=== PATIENT | female | born 2005 | race Caucasian/White ===

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

== ENCOUNTER 2023-04-02 12:30 | Emergency (ER) | payer MEDICAID, SELFPAY ==
--- NOTE | ~2023-04-02 | XR_ITS ---
EXAMINATION: XR ANKLE, RIGHT CLINICAL INFORMATION: Pain. Trauma. COMPARISON: None available. TECHNIQUE: AP, lateral, and mortise views of the right ankle. FINDINGS: Bone alignment is normal. No fracture or dislocation. Normal ankle mortise. Lateral soft tissue swelling. XR/XR ankle RT 2V IMPRESSION: Lateral soft tissue swelling. No fracture or dislocation.
--- NOTE | 2023-04-02 12:40 | ED.LOWEXIN ---
HPI - Extremity Injury (Lower) General Chief Complaint: Extremity Problem Stated Complaint: R Ankle Injury 04/02/23 Time Seen by Provider: 04/02/23 12:51 Source: patient Mode of arrival: wheelchair Limitations: no limitations History of Present Illness HPI Narrative: Patient is a 17-year-old female presenting to the emergency department with complaint of right lateral ankle pain and swelling. States she was walking down a set of stairs to take her dog outside when she felt a popping sensation and pain. She denies any numbness or tingling to her ankle or foot. She took 400 mg ibuprofen prior to arrival. Reports that she has had fractures in the past and pain feels similar. She denies hitting her head, denies loss of consciousness, denies any other pain or injuries. MD complaint: ankle injury Onset (ago): hour(s) Injury: Right: ankle Type of Injury: unknown Place: home Severity: severe Relieving factors: nothing Exacerbating factors: weight bearing Context: walking Associated symptoms: snap/pop sensation Other symptoms: none Treatments prior to arrival: NSAIDS Related Data Previous Rx's Medication Instructions Recorded ketorolac 10 mg tablet 10 mg PO TID 5 days #15 tabs 04/12/21 methocarbamol 750 mg tablet 750 mg PO TID 3 days #9 tabs 04/12/21 acetaminophen 500 mg tablet 500 mg PO Q6H PRN fever or pain 11/29/22 (Tylenol Extra Strength) #14 tabs naproxen 500 mg tablet 500 mg PO BID PRN pain 10 days #20 11/29/22 tabs Allergies Allergy/AdvReac Type Severity Reaction Status Date / Time isotretinoin AdvReac Blister Verified 11/29/22 09:15 Review of Systems Review of Systems: As per HPI. Yes all other systems are reviewed and are negative Constitutional: Constitutional: Reports as per HPI [facility] Social History Social History Advance Directives: No Advance Directives Information Provided: No Physical Exam Vital Signs: Vital Signs: Last Vital Signs Temp 98.3 F 04/02/23 12:42 Pulse 86 04/02/23 12:42 Resp 18 04/02/23 12:42 BP 119/72 04/02/23 12:42 Pulse Ox 98 04/02/23 12:42 O2 Del Method Room Air 04/02/23 12:42 BMI result Body Mass Index 30.2 Vital signs have been reviewed and appear to be correct. Blood pressure normal. Heart rate normal. Respiratory rate normal. Temperature normal. Oxygen saturation normal. Const: General: cooperative, healthy appearing and no acute distress Orientation/consciousness: oriented to person, oriented to place, oriented to time and patient oriented x3 Limitations: no limitations HEENT: Head: Yes normocephalic and Yes atraumatic Ears: external ears normal General nose exam: Normal external nose present Face and sinus: Yes face symmetric Mouth: oropharynx normal and moist mucous membranes Throat: Yes uvula midline Eyes: Pupils: Equal, round and reactive pupils present Neck: Neck: Yes normal visual inspection and Yes supple Resp: Effort & Inspection: normal respiratory effort and able to speak in complete sentences Auscultation: clear to auscultation bilaterally Cardio: Rate: regular rate Rhythm: regular rhythm Heart sounds: S1 normal heart sound present and S2 normal heart sound present GI: Palpation (GI): Soft to palpation and nontender Auscultation: normoactive bowel sounds : General: Yes no CVA tenderness Back/Spine/Pelvis: Back: no CVA tenderness Skin: General skin exam: elasticity normal and turgor normal Neuro: General: oriented to person, oriented to place, oriented to time, patient oriented x3, moves all extremities, no focal motor deficits and CN's II-XI intact bilaterally Cranial nerves: Yes Equal, round and reactive pupils present Cognition (Neuro): normal cognition Extrem: General: Yes full ROM, Yes normal exam except as noted, Yes no pedal edema and Yes no calf tenderness Right lower extremity: ankle Details: tenderness Location: of the lateral malleolus, swelling Details: laterally and abnormal ROM Details: pain with active ROM Details: with plantar flexion, with dorsiflexion, with inversion and with eversion; no ecchymosis and no crepitus and foot Details: vascular exam Details: dorsalis pedis pulse present, posterior tibial pulse present and normal capillary refill Psych: Mental Status: mental status grossly normal Affect: normal affect Thought process: Normal thought process present Course Course Course Narrative: This is a rapid medical exam. Deferred additional HPI, ROS, PE to primary provider. 17 yo female with history of anxiety, depression, PTSD here with complaints of right ankle pain after missing a step today. Will check x-rays VSS Medical Decision Making Medical Decision Making [facility] Narrative: Patient is a 17-year-old female presenting to the emergency department with complaint of right lateral ankle pain and swelling. On exam patient is awake, A+Ox3, VS WNL, afebrile, normal neurological exam without focal deficits, tenderness and swelling to lateral malleolus of right ankle, no ecchymosis or warmth, pain with range of motion, 2+ DP and PT pulses. Given reported symptoms and physical exam findings, initial differential includes strain, sprain, fracture. X-ray notable for no acute fracture dislocation. My interpretation is in agreement with the radiologist's interpretation. X-ray results discussed with patient and all questions answered. Will place patient in air splint and provided crutches with teaching, refer to orthopedics for further management. Advised patient to keep ankle elevated while at rest, apply ice several times daily, alternate Tylenol ibuprofen as needed for discomfort. Return precautions discussed at bedside. Patient verbalized understanding of and agreement with plan. Differential Diagnosis Differential Diagnoses: The differential diagnosis associated with the presentation includes As per MDM. Independent Interpretation I performed an independent interpretation of an: Plain X-Ray Interpretation: No acute fracture dislocation Radiology Impression Discussion of test interpretation with radiology: I have reviewed the radiologist's reading. Radiologist Impression: XR/XR ankle RT 2V IMPRESSION: Lateral soft tissue swelling. No fracture or dislocation. ? External Record Review External record reviewed: Inpatient record, Office record and Outpatient record Discharge Plan Discharge Clinical Impression: Right ankle sprain Patient Disposition: Home, Self-Care Instructions: R.I.C.E. Treatment (ED), Ankle Sprain (DC), Crutch Instructions (ED) Additional Instructions: You have been evaluated in the emergency department today for ankle pain. Your x-ray did not show evidence of fracture or dislocation. We have provided crutches for you to use while your ankle heals. Please rest, ice, and elevate your ankle, and resume normal activities as tolerated. We recommend you take 600mg ibuprofen every 6 hours or 650mg Tylenol every 6 hours as needed for pain. If needed you can alternate these medications as they take 1 medication every 3 hours. For instance at noon take ibuprofen, then at 3:00 p.m. take Tylenol, then at 6:00 p.m. take ibuprofen. You are being referred to orthopedics for further management, please contact their office to schedule an appointment. Please schedule an appointment for follow-up with your primary care provider this week. Return to the emergency department if you experience worsening pain, numbness, tingling, change of color in your foot, or any other concerning symptoms. Prescriptions: No Action ketorolac 10 mg tablet 10 mg PO TID 5 Days Qty: 15 0RF methocarbamol 750 mg tablet 750 mg PO TID 3 Days Qty: 9 0RF acetaminophen [Tylenol Extra Strength] 500 mg tablet 500 mg PO Q6H PRN (Reason: fever or pain) Qty: 14 0RF naproxen 500 mg tablet 500 mg PO BID PRN (Reason: pain) 10 Days Qty: 20 0RF Referrals: [facility] [place] Group] Stand Alone Forms: Work/School Release
[2023-04-02 12:42] VITALS: BP 119/72; PULSE 86; RESP 18; TEMP 36.8; O2SAT 98; BMI 30.2
== END 2023-04-02 14:02 | disposition home or self-care (01) ==
PROVIDERS: Emergency Provider Emergency Medicine; PCP Internal Medicine
DX: S93.401A Sprain of unspecified ligament of right ankle, initial encounter (principal); X58.XXXA Exposure to other specified factors, initial encounter; Y93.9 Activity, unspecified; Y92.9 Unspecified place or not applicable; Y99.9 Unspecified external cause status; Z79.899 Other long term (current) drug therapy
CPT/HCPCS: 73600; 99283; 99284

== ENCOUNTER 2023-04-05 10:14 | Emergency (ER) | payer MEDICAID, SELFPAY ==
[2023-04-05 11:43] VITALS: BP 118/68; PULSE 74; RESP 18; TEMP 36.8; O2SAT 97; BMI 31.8
--- NOTE | 2023-04-05 11:44 | ED.LOWEXIN ---
HPI - Extremity Injury (Lower) General Chief Complaint: Extremity Injury, Lower Stated Complaint: wants extension on work note for ankle Time Seen by Provider: 04/05/23 11:44 Source: patient Mode of arrival: ambulatory Limitations: no limitations History of Present Illness HPI Narrative: 17 yo female with history of anxiety, depression, PTSD here with need for work note. Patient reports she slipped going down the stairs with eversion hearing a pop. Seen here 04/02 and had negative x-rays. Not using crutches. Here seeking work note as she was only given one for 3 days. Couldnt see her PCP. Has appt with orthopedics on Monday. No associated weakness, numbness, tingling of the extremity. Related Data Previous Rx's Medication Instructions Recorded ketorolac 10 mg tablet 10 mg PO TID 5 days #15 tabs 04/12/21 methocarbamol 750 mg tablet 750 mg PO TID 3 days #9 tabs 04/12/21 acetaminophen 500 mg tablet 500 mg PO Q6H PRN fever or pain 11/29/22 (Tylenol Extra Strength) #14 tabs naproxen 500 mg tablet 500 mg PO BID PRN pain 10 days #20 11/29/22 tabs Allergies Allergy/AdvReac Type Severity Reaction Status Date / Time isotretinoin AdvReac Unknown Blister Verified 04/05/23 11:48 Review of Systems Review of Systems: Yes all other systems are reviewed and are negative Constitutional: Constitutional: Reports no additional constitutional complaints, Denies body ache(s), Denies chills, Denies fever(s), Denies headache(s) and Denies weakness Eyes: Eyes: Reports no additional eye complaints and Denies change in vision ENT: Reports system reviewed and no additional complaints, except as documented, Denies dizziness, Denies headache(s), Denies nasal congestion, Denies nasal discharge and Denies neck pain Cardiovascular: Cardiovascular: Reports no additional cardiovascular complaints, Denies chest pain, Denies leg edema and Denies dyspnea Respiratory: Respiratory: Reports no additional respiratory complaints, Denies cough and Denies dyspnea Gastrointestinal: Gastrointestinal: Reports no additional gastrointestinal complaints, Denies abdominal pain, Denies diarrhea, Denies nausea and Denies vomiting Genitourinary: Genitourinary: Reports no additional female genitourinary complaints and Denies urinary incontinence Musculoskeletal: Musculoskeletal: Reports no additional musculoskeletal complaints, Denies back pain, Reports arthralgias, Reports joint swelling, Denies neck pain, Denies numbness and Denies tingling Integumentary/Breasts: Skin/Breast: Reports system reviewed and no additional complaints, except as docu and Denies rash Neurologic: Reports system reviewed and no additional complaints, except as documented, Denies Abnormal speech present, Denies dizziness, Denies headache(s), Denies numbness, Denies tingling and Denies weakness [facility] Past Medical History Attestation statement: The following information was validated with the patient. Source: old records reviewed and nursing notes reviewed Physical Exam Vital Signs: Vital Signs: Last Vital Signs Temp 98.2 F 04/05/23 11:43 Pulse 74 04/05/23 11:43 Resp 18 04/05/23 11:43 BP 118/68 04/05/23 11:43 Pulse Ox 97 04/05/23 11:43 O2 Del Method Room Air 04/05/23 11:43 BMI result Body Mass Index 31.8 Const: General: cooperative, healthy appearing, comfortable and no acute distress Orientation/consciousness: patient oriented x3 Limitations: no limitations HEENT: Head: Yes normal to inspection Ears: hearing grossly normal bilaterally General nose exam: Normal external nose present Face and sinus: Yes normal facial exam Mouth: Normal oral and palatal mucosa present Throat: Yes posterior oropharynx normal Eyes: General: appearance normal, both eyes and all related structures Pupils: Equal, round and reactive pupils present Neck: Neck: Yes normal visual inspection Chest: Chest palpation & inspection: normal inspection of the chest Resp: Effort & Inspection: normal respiratory effort Auscultation: clear to auscultation bilaterally Cardio: Rate: regular rate Rhythm: regular rhythm Peripheral pulses: Peripheral pulses 2+ throughout GI: Inspection: Yes normal to inspection Palpation (GI): Soft to palpation and nontender Auscultation: normal bowel sounds Back/Spine/Pelvis: Thoracic/Lumbar Spine: thoracic and lumbar spine normal to inspection Skin: General skin exam: no rashes or lesions noted Neuro: General: patient oriented x3, no focal motor deficits and normal sensation to monofilament Cranial nerves: Yes Equal, round and reactive pupils present Cognition (Neuro): normal cognition Speech: No Abnormal speech present Gait exam (Neuro): Normal gait present Motor exam (neuro): 5/5 motor strength present throughout Extrem: Other: +swelling/tenderness on palpation over the right lateral ankle Normal DP/PT pulses Normal sensation Pain with ROM of ankle but passive is intact. General: Yes normal to inspection Medical Decision Making Medical Decision Making MDM Narrative: 17-year-old female seen here on April 02 for an ankle sprain asking for extension of her work no as she was given 1 for 3 days only. Patient reports she has follow-up appointment on Monday with Orthopedics. She has been using the air splint but has not been using the crutches. She has been elevating and taking ibuprofen/Tylenol. 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 On exam patient has tenderness and swelling over the right lateral ankle. Passive range of motion is intact but painful. CMS is intact distally. No new injury to suggest need for additional imaging. Patient will be given work note to Monday. Recommend continue rice, use crutches at home with limited weight-bearing. Differential Diagnosis Differential Diagnoses: The differential diagnosis associated with the presentation includes Ankle sprain, strain Low concern for fracture, vascular injury Tests considered The following testing was considered but not selected: No need for additional x-rays has no new injury or trauma. Prescription Management I considered prescription management with: Pain Medication pain is controlled with apap/motrin which patient has at home Discharge Plan Discharge Clinical Impression: Ankle sprain Patient Disposition: Home, Self-Care Instructions: Ankle Sprain (ED), Crutch Instructions (ED), R.I.C.E. Treatment (ED) Additional Instructions: Rest, ice, elevation USE THE CRUTCHES Motrin or tylenol for pain as need See orthopedics as scheduled on Monday Prescriptions: No Action ketorolac 10 mg tablet 10 mg PO TID 5 Days Qty: 15 0RF methocarbamol 750 mg tablet 750 mg PO TID 3 Days Qty: 9 0RF acetaminophen [Tylenol Extra Strength] 500 mg tablet 500 mg PO Q6H PRN (Reason: fever or pain) Qty: 14 0RF naproxen 500 mg tablet 500 mg PO BID PRN (Reason: pain) 10 Days Qty: 20 0RF Referrals: Physician,Unknown J [Primary Care Provider] - 1 week Stand Alone Forms: Work/School Release
== END 2023-04-05 12:10 | disposition home or self-care (01) ==
LOC: HO.ED 11:54
PROVIDERS: Emergency Provider Emergency Medicine; PCP Internal Medicine
DX: M25.571 Pain in right ankle and joints of right foot (principal); S93.401D Sprain of unspecified ligament of right ankle, subsequent encounter; X50.1XXD Overexertion from prolonged static or awkward postures, subsequent encounter
CPT/HCPCS: 99282

== ENCOUNTER 2023-04-10 09:59 | Outpatient (AMB) | payer MEDICAID, SELFPAY ==
--- NOTE | 2023-04-10 10:05 | A.OFFVIS_ITS ---
Intake Intake Visit Reasons: New Pt - right ankle pain, DOI 04/02/23 Intake Note: Nelly is a 17 year old female who presents today as a new patient for her right ankle pain, DOI 04/05/23. She is accompanied by her Mother, Monica, today. Patient reports she slipped going down her stairs and she heard a pop. She states her pain level today is a 6/10. She is taking ibuprofen for the pain. Allergies isotretinoin Adverse Reaction (Unknown, Verified 04/10/23 10:07) Blister Medication List - Last Reconciled 04/10/23 by Monica Cohn, RN acetaminophen (Tylenol Extra Strength) 500 mg PO Q6H PRN ketorolac 10 mg PO TID 5 days lamotrigine 75 mg PO DAILY methocarbamol 750 mg PO TID 3 days naproxen 500 mg PO BID PRN 10 days HPI New Pt - right ankle pain, DOI 04/02/23 HPI Details 17-year-old female who presents in the o [facility] today, as a new patient, for an evaluation of right ankle pain. The patient presented to the ED on 04/02/2023 status post taking her dog down stairs when she sustained an inversion injury and felt a pop accompanied with pain in the right ankle. X-rays of the right ankle were obtained. She was placed in an air splint and provided crutches with a referral to Orthopedics. She claims her pain is a 6/10 while in the office today. She is currently taking ibuprofen for pain. Patient is accompanied in the office today by her mother, Monica. Review of Systems Const All systems reviewed & are unremarkable except as noted in HPI and below Physical Exam Const General: cooperative and no acute distress Orientation/consciousness: patient oriented x3 Resp Effort & Inspection: normal respiratory effort and able to speak in complete sentences Cardio Rate: regular rate Peripheral pulses: Peripheral pulses 2+ throughout GI Palpation (GI): Soft to palpation Skin General skin exam: no rashes or lesions noted Lesions: no lesions Rashes: no rashes Neuro General: patient oriented x3 Extrem Other: Right ankle: Normal to inspection. No ecchymosis, erythema, or edema. Tenderness to palpation lateral along the peroneal tendons. Patient is able to demonstrate dorsiflexion and plantar flexion to end range. Difficulty with pronation and supination due to pain. Negative anterior drawer. Sensation intact. Pedal Pulse intact. Assessment & Plan Assessment & Plan (1) Right ankle sprain: Code(s): S93.401A - Sprain of unspecified ligament of right ankle, initial encounter Qualifiers: Encounter type: initial encounter Involved ligament of ankle: unspecified ligament Qualified Code(s): S93.401A - Sprain of unspecified ligament of right ankle, initial encounter Plan Ms. Castorena is a 17-year-old female who presents in the office today, as a new patient, for an evaluation of right ankle pain. The patient presented to the ED on 04/02/2023 status post taking her dog down stairs when she sustained an inversion injury and felt a pop accompanied with pain in the right ankle. X-rays of the right ankle were obtained. She was placed in an air splint and provided crutches with a referral to Orthopedics. She claims her pain is a 6/10 while in the office today. She is currently taking ibuprofen for pain. Patient is accompanied in the office today by her mother, Monica. The patient was placed in a tall walking boot, off the shelf, while in the office today. She may weight bear at tolerated. She will remain out of work until her follow up. She will be referred for physical therapy. Follow up will be in 3 weeks, or sooner if needed. X-rays of the right ankle, obtained on 04/02/2023, revealed: Lateral soft tissue swelling. No fracture or dislocation. Patient Instructions: Scribed for Yelena Medeiros PA-C by ariana Orozco scribe, on 04/10/2023 at 10:03 am, EST. Coding Level of Care Code New Pt Level 3 (39217) Diagnoses Sprain of right ankle, unspecified ligament, initial encounter S93.401A Encounter type: initial encounter Involved ligament of ankle: unspecified ligament
== END 2023-04-10 10:47 | disposition home or self-care (01) ==
PROVIDERS: PCP Internal Medicine; Visit Provider Physician Assistant
DX: S93.401A Sprain of unspecified ligament of right ankle, initial encounter (principal)
CPT/HCPCS: 99203

== ENCOUNTER → 2023-04-10 09:59 | Outpatient (BNVA) | payer MEDICAID, SELFPAY | PROVIDERS: PCP Internal Medicine; Visit Provider Physician Assistant | DX: S93.401A Sprain of unspecified ligament of right ankle, initial encounter (principal) | CPT/HCPCS: 99212 ==

== ENCOUNTER 2023-04-13 16:31 | Emergency (ER) | payer OTHER, MEDICAID, SELFPAY ==
--- NOTE | ~2023-04-13 | XR_ITS ---
EXAMINATION: XR LUMBOSACRAL SPINE CLINICAL INFORMATION: Low back pain. COMPARISON: None available. TECHNIQUE: Three views of the lumbosacral spine. FINDINGS: The vertebral bodies and posterior elements are normal. The disc spaces are preserved and the vertebral alignment is normal. The paraspinal soft tissues are normal. XR/XR lumbar spine 2-3V IMPRESSION: Unremarkable lumbar spine examination.
[2023-04-13 18:07] VITALS: BP 130/80; PULSE 116; O2SAT 96; BMI 25.7
[2023-04-13 19:17] VITALS: BP 104/61; PULSE 84; RESP 18; TEMP 36.8; O2SAT 98
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
[2023-04-13] MEDS: Ibuprofen 600 MG TABLET PO (20:34)
[2023-04-13 20:51] VITALS: BP 117/70; PULSE 77; RESP 20; O2SAT 100
== END 2023-04-13 21:23 | disposition home or self-care (01) ==
PROVIDERS: Emergency Provider Internal Medicine
DX: Z04.1 Encounter for examination and observation following transport accident (principal); M62.830 Muscle spasm of back
CPT/HCPCS: 72100; 99283

== ENCOUNTER 2023-05-02 15:22 | Outpatient (AMB) | payer OTHER, SELFPAY ==
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
== END 2023-05-03 08:12 | disposition home or self-care (01) ==
PROVIDERS: PCP Internal Medicine; Visit Provider Physician Assistant
DX: S93.401A Sprain of unspecified ligament of right ankle, initial encounter (principal)
CPT/HCPCS: 99213